=== PATIENT | female | born 2000 | race Caucasian/White ===

== ENCOUNTER → 2020-06-15 | Outpatient (CLI) | payer OTHER | LOC: EXRD 11:16 | DX: R13.10 Dysphagia, unspecified (principal); R59.1 Generalized enlarged lymph nodes; R60.9 Edema, unspecified; M54.12 Radiculopathy, cervical region | CPT/HCPCS: 72040 ==

== ENCOUNTER → 2020-07-12 | Outpatient (CLI) | payer OTHER | LOC: EXRD 13:54 | DX: R13.10 Dysphagia, unspecified (principal); R59.1 Generalized enlarged lymph nodes; R60.9 Edema, unspecified | CPT/HCPCS: 76536 ==

== ENCOUNTER → 2020-07-18 | Outpatient (CLI) | payer OTHER | LOC: SLEEP 10:05 | DX: G47.30 Sleep apnea, unspecified (principal); R09.89 Other specified symptoms and signs involving the circulatory and respiratory systems; G47.33 Obstructive sleep apnea (adult) (pediatric) | CPT/HCPCS: 95810 ==

== ENCOUNTER → 2021-02-08 | Outpatient (CLI) | payer OTHER | LOC: EXRD 13:55 | DX: D44.0 Neoplasm of uncertain behavior of thyroid gland (principal); E04.2 Nontoxic multinodular goiter | CPT/HCPCS: 76536 ==

== ENCOUNTER → 2021-04-06 | Outpatient (CLI) | payer OTHER | LOC: CT 14:27 | DX: R59.1 Generalized enlarged lymph nodes (principal) | CPT/HCPCS: 70491; Q9967 ==